=== PATIENT | female | born 1970 | race Caucasian/White ===

== ENCOUNTER 2023-10-20 16:24 | Outpatient (OUT) | payer OTHER, SELFPAY ==
--- NOTE | 2023-10-20 16:33 | MM_ITS ---
Patient Name: AICHA BAUTISTA MR#: [id number] : 1970 Exam Date: 10/20/2023 Ordering Doctor: YORDAN CHAVEZ CNP RADIOLOGY REPORT PROCEDURE: MM TOMOSYNTHESIS SCREENING BI COMPARISON: None. INDICATIONS: Screening for malignant breast cancer Calculator Name NCI Breast Cancer Risk Assessment Tool 5 Year Breast Cancer Risk Not Reported. Lifetime Breast Cancer Risk Not Reported. Personal Breast Cancer No Personal Ovarian Cancer No Treatments None Family Cancers None LOCATION: [facility] BREAST COMPOSITION: Heterogeneously dense,which may obscure small masses. FINDINGS: DIAGNOSTIC CATEGORY 1--NEGATIVE. NO CHANGE FROM COMPARISON ASSESSMENT. Scattered benign-appearing calcifications are present. Scattered benign-appearing lymph nodes are present. RIGHT BREAST: No significant suspicious finding. LEFT BREAST: No significant suspicious finding. RECOMMENDATIONS: ROUTINE MAMMOGRAM AND CLINICAL EVALUATION IN 12 MONTHS. PLEASE NOTE: A NORMAL MAMMOGRAM DOES NOT EXCLUDE THE POSSIBILITY OF BREAST CANCER. A CLINICALLY SUSPICIOUS PALPABLE LUMP SHOULD BE BIOPSIED. Dictated by: Elliott Bennett MD on 10/24/2023 at 15:23 Approved by: Elliott Bennett MD on 10/24/2023 at 15:27
== END 2023-10-20 16:25 | disposition home or self-care (01) ==
LOC: MAMMO 16:31
PROVIDERS: PCP Nurse Practitioner Family; Visit Provider Nurse Practitioner Family
DX: Z12.31 Encounter for screening mammogram for malignant neoplasm of breast (principal)
CPT/HCPCS: 77063; 77067

== ENCOUNTER 2025-01-31 10:24 | Outpatient (OUT) | payer OTHER, SELFPAY ==
--- OUTSIDE RECORDS SUMMARY | 2023-10-25 04:33 | XMS_ITS ---
Author Organization [facility] in [place] Address [address] [place] [address] Care Team Providers Care Building Manager Name Role Phone Lacie Levin Primary Care Provider [phone] LACIE LEVIN Unavailable [phone] REASON FOR VISIT mammogram Encounters Encounter Location Date Provider Diagnosis [facility] [address] [place] [address] 10/25/2023 LACIE LEVIN Plan Of Treatment No Information Progress Notes * Alannah BAUTISTAB:1970 ( 52 yo F)Acc No.[id number]:10/25/2023 Patient: Mini Chavez :1970 A ge:52 Y S ex:Female Address:[address] [place] [address] * true * Date: Generated for Ayan read/[place]/eTransmitting on: 0 01/31/2025 10:25 AM EDT
--- OUTSIDE RECORDS SUMMARY | 2024-05-30 04:30 | XMS_ITS ---
Author Organization [facility] in [place] Address [address] [place] [address] Care Team Providers Care Social Media Intern Name Role Phone Lacie Levin Primary Care Provider [phone] Allergies No Known Allergies REASON FOR VISIT red spots around nose and moth x1 month. Denies any discomfort or itching Medications Medication SIG (Take, Route, Frequency, Duration) Notes Start Date End Date Status Triamcinolone Acetonide 0.1 % 1 applicat ion Externally BID for 7 days 05/30/2024 Active Losartan Potassium 100 MG 1 tablet Orall y Once a day for 30 days 08/02/2023 Active hydroCHLOROthiazide 12.5 MG 1 tablet in the morning Orally Once a day for 30 days 09/02/2023 Active Norvasc 10 MG 1 tablet Orally Once a day for 30 days 08/19/2023 Active Social History Tobacco Use: Social History Observation Description Date Details (start date - stop date) Former Smoker NA - NA Tobacco Use/Smoking Question Answer Notes Patient is a former smoker How long has it been since you last smoked? > 10 years AUDIT-C (Standard) Question Answer Notes Did you have a drink containing alcohol in the p ast year? No Points 0 Interpretation Negative Vital Signs Blood pressure systolic 124 mm Hg 05/30/20 24 Blood pressure diastolic 88 mm Hg 024 Height 64 in 05/30/2024 Weight 175.6 lbs 05/30/2024 BMI 30.14 kg/m2 05/30/2024 Encounters Encounter Location Date Provider Diagnosis [facility] [address] [place] [address] 05/30/2024 Lacie Levin Rash R21 Assessments Encounter Date Diagnosis (ICD Code) Assessment Notes Treatment Notes Treatment Clinical Notes Section Notes 05/30/2024 Rash (ICD-10 - R21) hydrocortisone helped in past when had rash on chin trial of steroid cream if not effective will try doxy, notify office fu derm if not successful treating Plan Of Treatment Medication Medication Name Sig Start Date Stop Date Notes Triamcinolone Acetonide 0.1 % 1 applicat ion Externally BID for 7 days 05/30/2024 Treatment Notes Assessment Notes Rash hydrocortisone helped in past when had rash on chin trial of steroid cream if not effective will try doxy, notify office fu derm if not successful treating Next Appt Details Follow Up: prn, Reason: Progress Notes * MICHELE MattaDOB:1970 ( 53 yo F)Acc No.[id number]:05/30/2024 Progress Note Patient: Mini CASILLAS Provider: Wilma Levin ([facility]), BI MANAGER :1970 A ge:53 Y S ex:Female Date:05/30/2024 Address:[address] [place], [place] [id number] Check In:08:19 AM ESTCheck O ut:08:44 AM EST Subjective: * Chief Complaints: * 1 . red spots around nose and moth x1 month. Denies any discomfort or itching. * HPI: G eneral: May rash started no new make up , no new meds, no new lotions little itchy when started, coconut oil helps some. * ROS: G eneral/Constitutional: Fever d enies. H eadache d enies. W eight loss�denies. O phthalmologic: Discharge d enies. E ye Pain d enies. I tching and redness d enies. E NT: Nasal discharge d enies. N ida congestion d enies.�Sore throat d enies. C ardiovascular: Chest tightness/ heavy pressure d enies. R apid heart rate d enies. S welling of extremities d enies. C hest pain d enies. � R espiratory: Productive cough d enies. C hest pain d enies. C ough d enies. S hortness of breath d enies. W heezing d enies. � G astrointestinal: Abdominal pain d enies. C onstipation d enies. D ecreased appetite d enies. D iarrhea d enies. N ausea d enies. V omiting�denies. G enitourinary: Urinary incontinence d enies. P ainful urination d enies. M usculoskeletal: Back pain d enies. N fritz pain d enies. M uscle aches d enies. S kin: Rash a dmits around lips, chin. S kin lesion(s) d enies. * Active Problem List I10 Hypertension Modified On:07/21/2023W/U Status:confirmed K21.9 GERD (gastroesophage al reflux disease) Modified On:07/21/2023W/U Status:confirmed * Medical History: H ypertension, GERD (gastroesophageal reflux disease). * Surgical History: d enies . * Hospitalization/Major Diagno stic Procedure: d enies . * Family History: F ather: 49 yrs, acute myocardial infarction, diagnosed with Unspecified essential hypertension, Unspecified heart disease, Diabetes mellitus without mention of complication, type II or unspecified type, not stated as uncontrolled. M other: alive. B rother(s): alive. S ister(s): alive, multiple sclerosis, skin cancer, diagnosed with Other malignant neoplasm of unspecified site. S on(s): alive. D aughter(s): alive. 2 brother(s) , 4 sister(s) . 1 son(s) , 1 daughter(s) - healthy. . * Social History: T obacco Use: T obacco Use/Smoking P atient is a f ormer smoker H ow long has it been since you last smoked?�> 10 years D rug/Alcohol: A CIPRIANO-C (Standard) D id you have a drink containing alcohol in the past year? N o P oints 0 I nterpretation N egative * Medications: T aking hydroCHLOROthiazide 12.5 MG Tablet 1 tablet in the morning Orally Once a day , Taking Losartan Potassium 100 MG Tablet 1 tablet Orally Once a day , Taking Norvasc(amLODIPine Besylate) 10 MG Tablet 1 tablet Orally Once a day , Discontinued Azithromycin 250 MG Tablet as directed Orally daily , Notes to Pharmacist: take two tablets po on first day than one tablet po days 2-5, Discontinued Benzonatate 200 MG Capsule 1 capsule as needed Orally Three times a day , Medication List reviewed and reconciled with the patient * Allergies: N .K.D.A. Objective: * Vitals: W t:175.6lbs, Ht: 64 in, BP:124/88mm Hg, BMI:30.14Index, Ht-cm: 162.56 cm, Wt-k.65 kg. * Examination: G eneral Examinations: GENERAL APPEARANCE: a lert and oriented, i n no acute distress. EYES: c onjunctiva normal, sclera non-icteric. NOSE: n ormal external appearance. LUNGS: c lear to auscultation bilaterally. CARDIO: r egular rate and rhythm, S1, S2 normal. MUSCULOSKELETAL G ait and station normal. SKIN: r ed scaly rash around lips, on chin. � Assessment: * Assessment: 1. R solange - R21 (Primary) Plan: * Treatment: * Preventive Medicine: Screenings/Counseling: B [place] ACTION PLAN Above Normal BMI Follow-up D ietary management education, guidance, and counseling See treatment section of progress note for complete details of management plan. * Follow Up: p rn * * Sign off status: Completed Visit Status: C HK (Check Out) true * Provider: Wilma Levin ([facility]), BI MANAGER Date: Generated for Ayan read/[place]/eTjeffyitting on: 0 01/31/2025 10:25 AM EDT History and Physical Notes * HPI (History of Present Illness) Category Sub-Category Detail Notes Category Not es General May rash started no new make up , no new meds, no new lotions little itchy when started, coconut oil helps some Examination Category Sub-Category Detail Notes Category Not es General Examinations GENERAL APPEARANCE: alert a nd oriented, in no acute distress EYES: conjunctiva normal, sclera non-icteric EARS: NOSE: normal external appe arance THROAT: CARDIO: regular rate and rhy thm, S1, S2 normal LUNGS: clear to auscultatio n bilaterally ABDOMEN: SKIN: red scaly rash aroun d lips, on chin BACK: MUSCULOSKELETAL: Gait and station nor mal LYMPH NODES:
--- OUTSIDE RECORDS SUMMARY | 2025-01-31 10:26 | XMS_ITS | Clinical Summary ---
Author Organization [facility] Address [address] [place] [address] Care Team Providers Care Shell Coremaker Name Role Phone Ramon Dasilva MD Primary Care Provider [phone] Social History Tobacco Use Types Packs/Day Years Used Date Smoking Tobacco: Never Assessed Comments Unknown Sex and Gender Information Value Date Recorded Sex Assigned at Not on file Legal Sex Female 7:03 PM EDT Gender Identity Female 10/13/2022 7:03 PM EDT Sexual Orientation Not on file Last Filed Vital Signs Vital Sign Reading Time Taken Comments Blood Pressure 128/78 12/24/2020 12:00 PM EDT Pulse - - Temperature - - Respiratory Rate - - Oxygen Saturation - - Inhaled Oxygen Concentration - - Weight 88.9 kg (196 lb) 04/21/2021 12:00 PM EDT Height 165.1 cm (5' 5 ) 04/21/2021 12:00 PM EDT Body Mass Index 32.62 04/21/2021 12:00 PM EDT Plan of Treatment Not on file Care Teams Shell Coremaker Relationship Specialty Start Date End Date Ramon Dasilva MD [address] [place] [id number] PCP - General Family Medicine 12/07/22
--- OUTSIDE RECORDS SUMMARY | 2025-01-31 10:26 | XMS_ITS | Patient Health Record ---
Author Organization [facility] [place] Address [address] [place] [address] Care Team Providers Care Side Framer Name Role Phone Lacie Levin Primary Care Provider Allergies No Known Allergies Reason For Referral No Information Medications Medication SIG (Take, Route, Frequency, Duration) Notes Start Date End Date Status Triamcinolone Acetonide 0.1 % 1 applicat ion Externally BID for 7 days 05/30/2024 Active hydroCHLOROthiazide 12.5 MG 1 tablet in the morning Orally Once a day for 90 days Active Losartan Potassium 100 MG TAKE 1 TABLET BY MOUTH EVERY DAY FOR 30 DAYS for 30 Active amLODIPine Besylate 10 MG TAKE 1 TABLET BY MOUTH EVERY DAY FOR 30 DAYS for 90 Active Social History Tobacco Use: Social History Observation Description Date Details (start date - stop date) Former Smoker NA - NA Tobacco Use/Smoking Question Answer Notes Patient is a former smoker How long has it been since you last smoked? > 10 years Alcohol Screen (Audit-C) Question Answer Notes Did you have a drink containing alcohol in the p ast year? No Points 0 Interpretation Negative AUDIT-C (Standard) Question Answer Notes Did you have a drink containing alcohol in the p ast year? No Points 0 Interpretation Negative Problems Problem Type SNOMED Code ICD Code Onset Dates Problem Status W/U Status Risk Notes Problem Hypertension (44764940) Hypertension (I10) Active confirmed Problem GERD (gastroesophagea l reflux disease) (K21.9) Active confirmed Vital Signs Blood pressure diastolic 88 mm Hg 05/30/2024 Height 64 in 05/30/2024 Blood pressure systolic 124 mm Hg 05/30/2024 Weight 175.6 lbs 05/30/2024 BMI 30.14 kg/m2 05/30/2024 Encounters Encounter Location Date Provider Diagnosis [facility] [address] [place] [address] 05/30/2024 Lacie Levin Rash R21 Assessments Encounter Date Diagnosis (ICD Code) Assessment Notes Treatment Notes Treatment Clinical Notes Section Notes 05/30/2024 Rash (ICD-10 - R21) hydrocortisone helped in past when had rash on chin trial of steroid cream if not effective will try doxy, notify office fu derm if not successful treating Plan Of Treatment Pending Test Test Name Order Date MAMM Screen Bilateral 07/21/2023 Insurance Providers Payer Name Payer Address Payer Phone Subscriber Number Group Number Insured Name Patient Relationship to Insured Coverage Start Date Coverage End Date R [address] [address] [place] [address] [id number] Mini Shah Self - patient is the insured Medical (General) History Medical History History ICD Code Hypertension I10 GERD (gastroesophageal reflux disease) K 21.9 Surgical History Surgery Date(Month/Year) denies Hospitalization History Reason Date(Month/Year) denies
--- NOTE | 2025-01-31 10:31 | MM_ITS ---
Patient Name: AICHA BAUTISTA MR#: [id number] : 1970 Exam Date: 01/31/2025 Ordering Doctor: YORDAN CHAVEZ CNP RADIOLOGY REPORT PROCEDURE: MM TOMOSYNTHESIS SCREENING BI COMPARISON: MM TOMOSYNTHESIS SCREENING BI, 10/20/2023. INDICATIONS: Screening Calculator Name NCI Breast Cancer Risk Assessment Tool 5 Year Breast Cancer Risk 0.70% Lifetime Breast Cancer Risk 5.60% Personal Breast Cancer No Personal Ovarian Cancer No Treatments None Family Cancers Grandfather-maternal with colon cancer at age 90; Grandfather-maternal with colon cancer at age 69. LOCATION: [facility] BREAST COMPOSITION: There are scattered areas of fibroglandular density. FINDINGS: DIAGNOSTIC CATEGORY 1--NEGATIVE. RIGHT BREAST: No significant suspicious finding. LEFT BREAST: No significant suspicious finding. RECOMMENDATIONS: ROUTINE MAMMOGRAM AND CLINICAL EVALUATION IN 12 MONTHS. PLEASE NOTE: A NORMAL MAMMOGRAM DOES NOT EXCLUDE THE POSSIBILITY OF BREAST CANCER. A CLINICALLY SUSPICIOUS PALPABLE LUMP SHOULD BE BIOPSIED. Dictated by: Manish Wheeler DO on 01/31/2025 at 15:38 Approved by: Manish Weheler DO on 01/31/2025 at 15:40
== END 2025-01-31 10:25 | disposition home or self-care (01) ==
LOC: MAMMO 10:24
PROVIDERS: PCP Nurse Practitioner Family; Visit Provider Nurse Practitioner Family
DX: Z12.31 Encounter for screening mammogram for malignant neoplasm of breast (principal); Z80.0 Family history of malignant neoplasm of digestive organs
CPT/HCPCS: 77063; 77067